=== PATIENT | male | born 1985 | race Caucasian/White ===

== ENCOUNTER 2018-07-27 10:01 | Emergency (ER) | payer OTHER ==
--- NOTE | 2018-07-27 12:01 | ED Physician Documentation ---
PD HPI CHEST PAIN - Stated complaint Stated Complaint: CHEST PAIN - Chief complaint Chief Complaint: Cardiac - History obtained from History obtained from: Patient, Family - History of Present Illness Timing - onset: Enter time (944), Today Timing - onset during: Rest Timing - duration: Hours Timing - details: Abrupt onset, Still present Pain level max: 8 Pain level now: 8 Quality: Sharp, Pain Location: Left chest Radiation: Left upper extremity Improved by: Nothing Worsened by: Other (nothing) Associated symptoms: Shortness of air. No: Diaphoresis, Nausea, Feeling faint / dizzy, General Weakness, Palpitations, Cough Similar symptoms before: Has not had sx before Recently seen: Not recently seen - Additional information Additional information: 33-year-old male previously well has had his recent annual exam and did well. He is sitting in an easy chair feeding his 8-month-old daughter when he developed the sudden onset of left upper chest pain with radiation of the pain down his left arm. He noted even some numbness to the left fourth and fifth digits. He does not know of any injury to his neck or chest and he does hold the baby on that side when he feeds here and he has not been doing this excessively. He does have a prior history of anxiety and he states that this feels different than what he has had with anxiety attack. Review of Systems Constitutional: denies: Fever Eyes: denies: Decreased vision Nose: denies: Congestion Throat: denies: Sore throat Cardiac: reports: Chest pain / pressure. denies: Palpitations Respiratory: reports: Dyspnea. denies: Cough, Hemoptysis, Wheezing GI: denies: Abdominal Pain, Nausea, Vomiting : denies: Dysuria, Frequency Skin: denies: Rash Musculoskeletal: reports: Extremity pain. denies: Neck pain, Back pain Neurologic: denies: Generalized weakness, Focal weakness, Numbness PD PAST MEDICAL HISTORY - Past Medical History Past Medical History: No - Past Surgical History Past Surgical History: No - Allergies Allergies/Adverse Reactions: Allergies Allergy/AdvReac Type Severity Reaction Status Date / Time No Known Drug Allergies Allergy Verified 07/27/18 10:14 - Social History Does the pt smoke?: No Smoking Status: Never smoker PD ED PE NORMAL - Vitals Vital signs reviewed: Yes (hypertensive mild ) - General General: Alert and oriented X 3, No acute distress, Well developed/nourished - HEENT HEENT: Atraumatic, PERRL, EOMI - Neck Neck: Supple, no meningeal sign - Cardiac Cardiac: RRR, No murmur - Respiratory Respiratory: No respiratory distress, Clear bilaterally, Other (no chest wall point tenderness. ) - Abdomen Abdomen: Soft, Non tender - Back Back: No CVA TTP, No spinal TTP - Derm Derm: Normal color, Warm and dry, No rash - Extremities Extremities: No deformity, No edema - Neuro Neuro: Alert and oriented X 3, fund controller 2-12 intact, No motor deficit, No sensory deficit, Normal speech Eye Opening: Spontaneous Motor: Obeys Commands Verbal: Oriented GCS Score: 15 - Psych Psych: Normal mood, Normal affect Results - Vitals Vitals: Vital Signs - 24 hr 07/27/18 07/27/18 07/27/18 10:10 12:10 13:32 Temperature 36.1 C L Heart Rate 70 84 65 Respiratory 16 20 22 Rate Blood Pressure 143/83 H 138/85 H 132/79 H O2 Saturation 100 97 97 07/27/18 14:17 Temperature Heart Rate 60 Respiratory 17 Rate Blood Pressure 138/71 H O2 Saturation 98 Oxygen O2 Source Room air - EKG (time done) 1007 Rate: Rate (enter#) (69) Rhythm: NSR Ischemia: Normal ST segments Compare to prior EKG: Old EKG unavailable Computer interpretation: Agree with computer - Labs Labs: Laboratory Tests 07/27/18 07/27/18 07/27/18 12:11 12:11 12:11 WBC 6.7 RBC 5.14 Hgb 14.3 Hct 43.2 MCV 84.1 MCH 27.9 MCHC 33.2 RDW 13.6 Plt Count 307 MPV 7.1 L Neut # (Auto) 4.4 Lymph # (Auto) 1.4 L Custer # (Auto) 0.6 Eos # (Auto) 0.2 Baso # (Auto) 0.1 Absolute Nucleated RBC 0.00 Nucleated RBC % 0.0 Sodium 136 Potassium 3.9 Chloride 100 L Carbon Dioxide 24 Anion Gap 12.0 BUN 14 Creatinine 0.9 Estimated GFR (MDRD) 97 Glucose 99 Calcium 9.2 Total Bilirubin 0.5 AST 34 ALT 35 Alkaline Phosphatase 59 Troponin I < 0.04 Total Protein 7.8 Albumin 4.4 Globulin 3.4 Albumin/Globulin Ratio 1.3 Lipase 25 07/27/18 14:10 WBC RBC Hgb Hct MCV MCH MCHC RDW Plt Count MPV Neut # (Auto) Lymph # (Auto) Custer # (Auto) Eos # (Auto) Baso # (Auto) Absolute Nucleated RBC Nucleated RBC % Sodium Potassium Chloride Carbon Dioxide Anion Gap BUN Creatinine Estimated GFR (MDRD) Glucose Calcium Total Bilirubin AST ALT Alkaline Phosphatase Troponin I < 0.04 Total Protein Albumin Globulin Albumin/Globulin Ratio Lipase - Rads (name of study) chest Radiology: Prelim report reviewed (Impression: Normal single view chest.), EMP read indepedently, See rad report PD MEDICAL DECISION MAKING - ED course Complexity details: reviewed results, re-evaluated patient, considered differential, d/w patient, d/w family ED course: 33 y/o male with left shoulder and arm pain without known injury has a negative work up of cardiac causes of arm pain. He relates that he was holding his 8 month old daughter feeding her when this pain started and he holds her in his left arm to feed her. He has had excellent pain relief with the use of toradal and 2 negative trops with hours of 8/10 pain. Departure - Departure Disposition: Home, Self Care Clinical Impression: Left upper arm pain Condition: Stable Instructions: ED Strain Muscle Ext Follow-Up: Akbar Crespo MD [Primary Care Provider] -
[2018-07-27 12:20] LABS: BASOPHILS # (AUTO) 0.1 10^3/uL (0.0-0.1); BASOPHILS % (AUTO) 0.8 %; EOSINOPHILS # (AUTO) 0.2 10^3/uL (0.0-0.7); EOSINOPHILS % (AUTO) 3.3 %; HGB - HEMOGLOBIN 14.3 g/dL (14.0-18.0); LYMPHOCYTES # (AUTO) 1.4 10^3/uL (1.5-3.5); MEAN CORPUSCULAR HEMOGLOBIN 27.9 pg (27.0-31.0); MEAN CORPUSCULAR HGB CONC 33.2 g/dL (32.0-36.0); MEAN CORPUSCULAR VOLUME 84.1 fL (80.0-94.0); MEAN PLATELET VOLUME 7.1 fL (7.4-11.4); MONOCYTES # (AUTO) 0.6 10^3/uL (0.0-1.0); NEUTROPHILS # (AUTO) 4.4 10^3/uL (1.5-6.6); NEUTROPHILS % (AUTO) 65.9 %; PLT - PLATELET COUNT 307 10^3/uL (130-450); RED BLOOD COUNT 5.14 10^6/uL (4.70-6.10); RED CELL DISTRIBUTION WIDTH 13.6 % (12.0-15.0); WHITE BLOOD COUNT 6.7 x10^3/uL (4.8-10.8)
--- NOTE | 2018-07-27 12:33 | XRAY Report ---
Reason: chest pain Procedure Date: 07/27/2018 Accession Number: [id number] / [id number] Procedure: XR - Chest 1 View X-Ray CPT Code: 98310 FULL RESULT: EXAM: CHEST RADIOGRAPHY EXAM DATE: 07/27/2018 12:09 PM. CLINICAL HISTORY: Chest pain. COMPARISON: None. TECHNIQUE: Upright AP view. FINDINGS: Lungs/Pleura: No focal opacities evident. No peribronchial cuffing or interstitial abnormality. No pleural effusion. No pneumothorax. Mediastinum: Within exam limitations, the cardiomediastinal contour is normal. Other: None. IMPRESSION: Normal single view chest. [facility]
[2018-07-27 12:36] LABS: ALBUMIN 4.4 g/dL (3.2-5.5); ALBUMIN/GLOBULIN RATIO 1.3 (1.0-2.2); BILIRUBIN,TOTAL 0.5 mg/dL (0.2-1.0); CALCIUM 9.2 mg/dL (8.5-10.3); CREATININE 0.9 mg/dL (0.6-1.2); TOTAL PROTEIN 7.8 g/dL (6.7-8.2)
[2018-07-27] MEDS ORDERED: KETOROLAC 30 MG/ML VIAL IVP STA (12:57)
[2018-07-27 14:22] VITALS: BP 138/71
== END 2018-07-27 14:55 | disposition home or self-care (01) ==
LOC: ED 10:01
DX: M79.622 Pain in left upper arm (principal)
CPT/HCPCS: 36415; 71045; 80053; 83690; 84484; 85025; 93005; 96374; 99283; 99284